=== PATIENT | male | born 1940 | race African-American/Black ===

== ENCOUNTER → 2016-11-22 | Outpatient (CLI) | payer OTHER ==
[~2016-11-22] MED LIST: AMLO5TAB2 PO; ASPI81TA27 PO; HYDR-2652 PO; LOSA50TA6 PO; METF-312 PO; METO-158 PO; SIMV-13 PO
[2016-11-22 11:03] LABS: BUN/Creatinine Ratio 13.4; Calcium 9.4 mg/dL (8.5-10.1); Potassium 4.4 mmol/L (3.5-5.1)
[2016-11-22 12:46] LABS: Urine Bilirubin Negative (Negative); Urine Blood Negative /uL (Negative); Urine Color Yellow (Yellow); Urine Glucose Normal (Normal); Urine Ketone Negative (Negative); Urine RBC 3 /hpf (0 - 3); Urine Squamous Epithelial Cell FEW /hpf (<5); Urine Urobilinogen Normal (Negative)
[2016-11-22 12:48] LABS: Urine Nitrite POSITIVE (Negative)
[2016-11-23 05:05] LABS: PSA Free 0.33 ng/mL; Prostate Specific Antigen 7.1 ng/mL (0.0-4.0)
== END | disposition home or self-care (01) ==
LOC: LAB 09:36
PROVIDERS: ATTEND Internal Medicine
DX: Z00.00 Encounter for general adult medical examination without abnormal findings (principal)
CPT/HCPCS: 36415; 80048; 80061; 81001; 83036; 84153; 84154; 84443

== ENCOUNTER 2017-02-03 18:45 | Emergency (ER) | payer OTHER ==
[~2017-02-03] VITALS: Ht 175.3 cm; Wt 93.9 kg
[2017-02-03 19:53] VITALS: BP 199/104
[2017-02-03] MEDS ORDERED: cloNIDine HCL 0.1 MG TAB ONE (19:53)
[2017-02-03] MEDS ORDERED: cloNIDine HCL 0.1 MG TAB PO ONE (20:15)
== END 2017-02-03 22:40 | disposition left against medical advice (07) ==
LOC: ER 18:45
DX: R51 Headache (principal); I10 Essential (primary) hypertension; Z53.21 Procedure and treatment not carried out due to patient leaving prior to being seen by health care provider
CPT/HCPCS: 71020; 93005

== ENCOUNTER → 2017-03-13 | Outpatient (CLI) | payer OTHER | END | disposition home or self-care (01) | LOC: LAB 10:00 | PROVIDERS: ATTEND Urology | DX: C61 Malignant neoplasm of prostate (principal) ==

== ENCOUNTER → 2017-04-06 | Outpatient (CLI) | payer OTHER | END | disposition home or self-care (01) | LOC: XY 08:12 | PROVIDERS: ATTEND Urology | DX: C61 Malignant neoplasm of prostate (principal); R97.20 Elevated prostate specific antigen [PSA] | CPT/HCPCS: 78306; A9503 ==

== ENCOUNTER 2017-06-15 06:02 | Inpatient (IN) | payer OTHER ==
[2017-06-12 11:43] LABS: Urine RBC None Seen /hpf (0 - 3)
[2017-06-12 11:53] LABS: Urine Bilirubin Negative (Negative); Urine Blood Negative /uL (Negative); Urine Color Yellow (Yellow); Urine Glucose Normal (Normal); Urine Ketone Negative (Negative); Urine Nitrite Negative (Negative); Urine Squamous Epithelial Cell FEW /hpf (<5); Urine Urobilinogen Normal (Negative)
[2017-06-12 12:00] LABS: CONDITION Y; DEFINITIVE SEE PRINTOUT; Hemoglobin 13.1 g/dL (13.5-17.5); Mean Corpuscular Hemoglobin 26.9 pg (28.0-32.0); White Blood Cell 6.3 10^3/uL (4.4-10.8)
[2017-06-12 12:12] LABS: Albumin 3.7 g/dL (3.4-5.0); BUN/Creatinine Ratio 14.2; Calcium 8.6 mg/dL (8.5-10.1); Potassium 3.9 mmol/L (3.5-5.1)
[2017-06-12 12:13] LABS: Basophils # (auto) 0 uL; Basophils % (auto) 0.6 % (0.0-2.0); Eosinophils # (auto) 0.1 uL; Eosinophils % (auto) 1.4 % (0.0-7.0); Hematocrit 38.6 % (41.0-53.0); Lymphocytes % (auto) 32.1 % (10.0-50.0); Mean Corpuscular Hgb Conc. 33.9 g/dL (32.0-36.0); Mean Corpuscular Volume 79.2 fL (80.0-100.0); Mean Platelet Volume 11.8 fL (7.4-10.4); Monocytes # (auto) 0.3 uL; Monocytes % (auto) 5.5 % (0.0-12.0); Neutrophils # (auto) 3.8 uL; Neutrophils % (auto) 60.4 % (37.0-80.0); Platelet Count (auto) 179 10^3/uL (140-450); Red Cell Distribution Width 16.8 % (11.6-16.0)
[2017-06-12 12:15] LABS: Bilirubin, Total 0.8 mg/dL (0.2-1.0); Total Protein 7.2 g/dL (6.4-8.2)
[2017-06-12 12:16] LABS: INR 0.95 (0.9-1.15); Partial Thromboplastin Time 29.6 sec (22.64-33.71); Prothrombin Time 10.4 sec (9.37-12.3)
[~2017-06-15] VITALS: Ht 175.3 cm; Wt 99.7 kg
[~2017-06-15 06:02] MED LIST changes: -AMLO5TAB2 PO; +ATOR40TA52 PO; +LORA-154 OR; -METF-312 PO; +METF-370 PO; -METO-158 PO
[2017-06-15] MEDS ORDERED: ceFAZolin 1GM/50ML D5W 0 ML IV ONE (07:42)
[2017-06-15] MEDS ORDERED: ceFOXitin 2GM/100ML D5W 100 ML IV ONE (07:43)
[2017-06-15] MEDS ORDERED: MIDAZOLAM HCL 1MG/1ML-2 ML VIAL ONE (08:02)
[2017-06-15] MEDS ORDERED: fentaNYL CITRATE 100 MCG/2 ML VL ONE ×2 (08:02→10:42)
[2017-06-15] MEDS ORDERED: PROPOFOL 10 MG/ML 20 ML IV ONE (08:05)
[2017-06-15] MEDS ORDERED: ROCURONIUM 10MG/ML 10ML VIAL IV ONE ×2 (08:06→10:42)
[2017-06-15] MEDS ORDERED: LABETALOL HCL 5 MG/ML 4ML SYRINGE IV ONE (08:39)
[2017-06-15] MEDS ORDERED: MORPHINE SULFATE INJECTION 1 ML ONE (09:11)
[2017-06-15] MEDS ORDERED: LIDOCAINE W/ EPINEPHRINE 1 % INJ 30ML ONE (09:27)
[2017-06-15] MEDS ORDERED: BUPIVACAINE 0.25% INJ 50ML VIAL ONE (09:27)
[2017-06-15] MEDS ORDERED: LIDOCAINE HCL (LOCAL ANESTH.) 0.5 % 50ML MDV IJ ONE (09:27)
[2017-06-15] MEDS ORDERED: METHYLENE BLUE 0.5% 5MG/ML 10ml AMP IV ONE (11:10)
[2017-06-15] MEDS ORDERED: HYDROmorphone HCL 2 MG/ML VL IV PRN ×2 (11:45→12:15)
[2017-06-15] MEDS ORDERED: ONDANSETRON HCL 4 MG/2 ML VIAL IV PRN (11:45)
[2017-06-15] MEDS ORDERED: ACETAMINOPHEN/CODEINE#3 (300/30mg) TAB PO PRN (11:45)
[2017-06-15] MEDS ORDERED: DEXTROSE (50%) 50ML SYRG IV PRN (11:45)
[2017-06-15] MEDS: hydrALAZINE HCL 25 MG TAB PO SCH ×2 (12:00→18:38)
[2017-06-15] MEDS ORDERED: METOCLOPRAMIDE HCL 5MG/ml INJ 2ml VIAL IV ONE (12:15)
[2017-06-15] MEDS ORDERED: hydrALAZINE HCL 20 MG/ML VL IV PRN (12:15)
[2017-06-15] MEDS ORDERED: fentaNYL CITRATE 100 MCG/2 ML VL IV PRN (12:15)
[2017-06-15] MEDS ORDERED: NEOSTIGMINE 1 MG/ML INJ (10mg/10ML VIAL) ONE (12:15)
[2017-06-15] MEDS ORDERED: ACCU-CHEK COMFORT CURVE STRIP VI ONE (12:15)
[2017-06-15] MEDS ORDERED: ONDANSETRON HCL 4 MG/2 ML VIAL IV ONE (12:15)
[2017-06-15] MEDS ORDERED: GLYCOPYRROLATE 0.2 MG/ML 1ML VIAL ONE (12:15)
[2017-06-15] MEDS ORDERED: DEXAMETHASONE SOD PHOS 10MG/1ML VIAL INJ ONE (12:16)
[2017-06-15] MEDS ORDERED: ONDANSETRON HCL 4 MG/2 ML VIAL ONE (12:16)
[2017-06-15] MEDS ORDERED: METOCLOPRAMIDE HCL 5MG/ml INJ 2ml VIAL ONE (12:16)
[2017-06-15] MEDS ORDERED: hydrALAZINE HCL 20 MG/ML VL ONE (12:28)
[2017-06-15] MEDS: SOD CHL 0.45% 1,000 ML IV SCH ×2 (13:00→19:42)
[2017-06-15] MEDS: CEFOXITIN SODIUM 1 GM in D5W 5% 50 ML IV SCH ×2 (14:00→22:59)
[2017-06-15 15:45] VITALS: BP 132/73
[2017-06-15 16:18] VITALS: BP 132/73
[2017-06-15] MEDS: InsuLIN REG 1unit/0.01ml Soln (100units/ml) SC SCH (17:00)
[2017-06-15] MEDS: ACCU-CHEK COMFORT CURVE STRIP VI SCH ×2 (17:40→22:56)
[2017-06-15] MEDS ORDERED: PATIENTS OWN MEDICATION (Simvastatin 40 MG) PO SCH ×2 (18:00)
[2017-06-15] MEDS: metFORMIN HYDROCHLORIDE 500 MG TAB PO SCH (18:38)
[2017-06-15] MEDS ORDERED: diphenhdrAMINE HCL 50 MG/1 ML VL IV PRN (21:00)
[2017-06-15 22:00] VITALS: BP 129/74
[2017-06-15] MEDS ORDERED: InsuLIN REG 1unit/0.01ml Soln (100units/ml) SC SCH (22:00)
[2017-06-15] MEDS ORDERED: ATORVASTATIN 20 MG TAB PO SCH (22:00)
[2017-06-16] MEDS: SOD CHL 0.45% 1,000 ML IV SCH ×2 (01:06→11:42)
[2017-06-16] MEDS: CEFOXITIN SODIUM 1 GM in D5W 5% 50 ML IV SCH (05:59)
[2017-06-16 06:00] VITALS: BP 136/61
[2017-06-16] MEDS: ACCU-CHEK COMFORT CURVE STRIP VI SCH ×2 (06:17→11:30)
[2017-06-16] MEDS: InsuLIN REG 1unit/0.01ml Soln (100units/ml) SC SCH ×2 (06:19→12:47)
[2017-06-16 06:31] LABS: Basophils # (auto) 0 uL; Basophils % (auto) 0.2 % (0.0-2.0); CONDITION Y; Eosinophils # (auto) 0 uL; Hematocrit 34.8 % (41.0-53.0); Lymphocytes # (auto) 1.5 uL; Lymphocytes % (auto) 11.2 % (10.0-50.0); Mean Corpuscular Hemoglobin 27.4 pg (28.0-32.0); Mean Corpuscular Hgb Conc. 34.5 g/dL (32.0-36.0); Mean Corpuscular Volume 79.6 fL (80.0-100.0); Mean Platelet Volume 11.3 fL (7.4-10.4); Monocytes # (auto) 0.9 uL; Monocytes % (auto) 6.8 % (0.0-12.0); Neutrophils # (auto) 10.9 uL; Neutrophils % (auto) 81.8 % (37.0-80.0); Platelet Count (auto) 174 10^3/uL (140-450); Red Cell Distribution Width 16.9 % (11.6-16.0); SUSPECT SEE PRINTOUT; White Blood Cell 13.3 10^3/uL (4.4-10.8)
[2017-06-16 06:47] LABS: BUN/Creatinine Ratio 11.3; Calcium 8.2 mg/dL (8.5-10.1); Potassium 3.9 mmol/L (3.5-5.1)
[2017-06-16] MEDS: hydrALAZINE HCL 25 MG TAB PO SCH ×2 (08:00→12:46)
[2017-06-16 09:00] VITALS: BP 121/66
[2017-06-16] MEDS ORDERED: LORATADINE 10 MG TAB PO SCH (10:00)
[2017-06-16] MEDS ORDERED: LOSARTAN POTASSIUM 50 MG TAB PO SCH (10:00)
[2017-06-16] MEDS: metFORMIN HYDROCHLORIDE 500 MG TAB PO SCH (10:44)
[2017-06-16 11:42] VITALS: BP 121/66
[2017-06-16 13:00] VITALS: BP 121/75
[2017-06-16 13:10] VITALS: BP 121/75
== END 2017-06-16 13:10 | disposition home or self-care (01) | DRG 708 ==
LOC: SUR 06:02 → TELE-EAST 06:03
PROVIDERS: ADMIT Urology; ATTEND Internal Medicine
PROC: 8E0W4CZ Robotic Assisted Procedure of Trunk Region, Percutaneous Endoscopic Approach (ICD-10-PCS; 2017-06-15)
PROC: 0VT04ZZ Resection of Prostate, Percutaneous Endoscopic Approach (ICD-10-PCS; principal; 2017-06-15 08:05)
DX: C61 Malignant neoplasm of prostate (principal); E11.9 Type 2 diabetes mellitus without complications; E78.5 Hyperlipidemia, unspecified; I10 Essential (primary) hypertension
CPT/HCPCS: 36415; 80048; 80053; 81001; 82962; 83036; 85025; 85610; 85730; 86850; 86900; 86901; J0690; J0694; J1100; J1815; J2250; J2405; J2704; J3490; J7060

== ENCOUNTER → 2017-07-24 | Outpatient (CLI) | payer OTHER, MEDICARE ==
[2017-07-24 08:47] LABS: Basophils # (auto) 0 uL; Basophils % (auto) 0.5 % (0.0-2.0); CONDITION Y; DEFINITIVE SEE PRINTOUT; Eosinophils # (auto) 0.1 uL; Eosinophils % (auto) 1.7 % (0.0-7.0); Hematocrit 37.4 % (41.0-53.0); Hemoglobin 12.7 g/dL (13.5-17.5); Lymphocytes # (auto) 2.1 uL; Mean Corpuscular Hemoglobin 26.6 pg (28.0-32.0); Mean Corpuscular Hgb Conc. 34.1 g/dL (32.0-36.0); Mean Corpuscular Volume 78.2 fL (80.0-100.0); Mean Platelet Volume 10.2 fL (7.4-10.4); Monocytes # (auto) 0.3 uL; Monocytes % (auto) 5.4 % (0.0-12.0); Neutrophils % (auto) 54.4 % (37.0-80.0); Platelet Count (auto) 194 10^3/uL (140-450); Red Cell Distribution Width 17.3 % (11.6-16.0); White Blood Cell 5.6 10^3/uL (4.4-10.8)
[2017-07-24 09:06] LABS: Urine Bilirubin Negative (Negative); Urine Blood 1+ /uL (Negative); Urine Color Yellow (Yellow); Urine Glucose Normal (Normal); Urine Ketone Negative (Negative); Urine Mucus FEW (None Seen); Urine Nitrite POSITIVE (Negative); Urine RBC 12 /hpf (0 - 3); Urine Squamous Epithelial Cell FEW /hpf (<5); Urine pH 7.5 (5.0-8.0)
[2017-07-24 09:08] LABS: Cholesterol 194 mg/dL (< 200); HDL Cholesterol 51 mg/dL (40-59); LDL Cholesterol 143 mg/dL (< 100); Triglycerides 77 mg/dL (< 150)
== END | disposition home or self-care (01) ==
LOC: LAB 08:31
PROVIDERS: ATTEND Urology
DX: C61 Malignant neoplasm of prostate (principal); E78.2 Mixed hyperlipidemia; R97.20 Elevated prostate specific antigen [PSA]
CPT/HCPCS: 36415; 80061; 81001; 84153; 85025

== ENCOUNTER → 2017-11-20 | Outpatient (CLI) | payer OTHER ==
[~2017-11-20] MED LIST changes: -HYDR-2652 PO; +HYDR50TA15 PO
== END | disposition home or self-care (01) ==
LOC: LAB 11:48
PROVIDERS: ATTEND Urology
DX: C61 Malignant neoplasm of prostate (principal)
CPT/HCPCS: 84153

== ENCOUNTER → 2018-03-13 | Outpatient (CLI) | payer OTHER ==
[2018-03-13 10:13] LABS: Eosinophils # (auto) 0.1 uL; Hemoglobin 13.9 g/dL (13.5-17.5); Lymphocytes # (auto) 2.1 uL; Monocytes # (auto) 0.3 uL; Nucleated Red Blood Cells % 0.1 %
[2018-03-13 10:14] LABS: Basophils # (auto) 0.1 uL; Basophils % (auto) 0.9 % (0.0-2.0); Eosinophils % (auto) 1.4 % (0.0-7.0); Hematocrit 40.3 % (41.0-53.0); Mean Corpuscular Hemoglobin 26.7 pg (28.0-32.0); Mean Corpuscular Hgb Conc. 34.4 g/dL (32.0-36.0); Mean Corpuscular Volume 77.4 fL (80.0-100.0); Neutrophils # (auto) 3.8 uL; Neutrophils % (auto) 59.7 % (37.0-80.0); Platelet Count (auto) 174 10^3/uL (140-450); Red Blood Cells 5.21 10^6/uL (4.5-5.90); Red Cell Distribution Width 16.8 % (11.8-14.3); White Blood Cell 6.3 10^3/uL (4.4-10.8)
[2018-03-13 10:17] LABS: Urine Bacteria MANY /hpf (None Seen); Urine Blood Negative /uL (Negative); Urine Specific Gravity 1.005 (1.001-1.035); Urine WBC 6 /hpf (0 - 3)
[2018-03-13 10:59] LABS: BUN/Creatinine Ratio 10.7; Bilirubin, Total 0.8 mg/dL (0.2-1.0); Calcium 9.3 mg/dL (8.5-10.1); Potassium 4.1 mmol/L (3.5-5.1); Total Protein 7.5 g/dL (6.4-8.2)
== END | disposition home or self-care (01) ==
LOC: LAB 09:22
PROVIDERS: ATTEND Nurse Practitioner
DX: E78.2 Mixed hyperlipidemia (principal); I10 Essential (primary) hypertension; E11.8 Type 2 diabetes mellitus with unspecified complications; E78.5 Hyperlipidemia, unspecified; Z85.46 Personal history of malignant neoplasm of prostate
CPT/HCPCS: 36415; 80053; 80061; 81001; 83036; 84443; 85025